=== PATIENT | female | born 1940 | race Two or more races ===

== ENCOUNTER 2018-08-17 06:30 | Day surgery (SDC) | payer OTHER ==
--- NOTE | 2018-08-16 18:46 | HP ---
- Patient Scheduled date of Surgery: 08/17/18 Scheduled Surgical Procedure: Phacoemulsification and cataract extraction with PCIOL Affected Eye: Right Chief Complaint (Indication for surgery): Decreased vision affecting ADLs - Ocular History Other Eye History: Other (dermatochalasis, L pugh's palsy) Eye Medications: vigamox, AT Previous Eye Surgery: none - Medical History Illnesses: Hypertension, Diabetes Current Medications: Ambulatory Orders Atenolol [Tenormin -] 50 mg PO DAILY 11/06/15 Glipizide [Glipizide Xl] 10 mg PO BID 11/06/15 metFORMIN HCL [Metformin HCl] 500 mg PO BID 11/06/15 Allergies/Adverse Reactions: Allergies Allergy/AdvReac Type Severity Reaction Status Date / Time No Known Allergies Allergy Verified 11/06/15 08:41 Ocular Examination - Best Corrected Visual Acuity Distance: Right eye: 20/40-2 Distance: Left eye: 20/30 - External/Slit Lamp Examination Abnormalities: decreased tbut, shallow peripherally - Intraocular Pressure Intraocular Pressure - Right eye: 15 Intraocular Pressure-Left eye: 15 - Lens Lens: 2+ NS 1+ cortical change - Vitreous/Retina Vitreous/Retina: c:d 0.4 m/v/p wnl - Special Examination M - Right eye: +2.75 M - Left eye: +2.75 -0.50 x 045 K - Right eye: 44.75/45.25 x 165 K - Left eye: 44.75/46 x 102 AL - Right eye: 23.19 AL - Left eye: 23.08 IOL bag: +20.5 AUOOTO IOL sulcus: +19.5 [id number] IOL AC: +16.5 [id number] - Impression Impression: Cataract Right Eye - Plan Plan: Phacoemulsification and cataract extraction - IOL Right eye Post-hospital care will be provided in office on: 08/18/18
[2018-08-17] MEDS ORDERED: TROPICAMIDE 1% OPHTH SOLN 15 ML BOTTLE OP SCH (06:45)
[2018-08-17 06:50] VITALS: BMI 32.2
[2018-08-17] MEDS ORDERED: CHONDROITIN SU A/HYALUR SOD 1 KIT ONE (07:13)
[2018-08-17] MEDS ORDERED: LIDOCAINE HCL/PF 1% SDV 5ML VIAL ONE (07:17)
[2018-08-17] MEDS ORDERED: POVIDONE-IODINE 5% OPHTHALMIC PREP 30 ML SOLUTION ONE (07:17)
[2018-08-17] MEDS ORDERED: TETRACAINE 0.5% OPHTH SOLN 2 ML BOTTLE ONE (07:17)
[2018-08-17] MEDS ORDERED: TOBRAMYCIN/DEXAMETHASONE OPHTH. OINTMENT 1 TUBE ONE (07:17)
--- NOTE | 2018-08-17 07:24 | HP ---
History & Physical Update - History History: No Change - Physical Physical: No Change - Assessment Assessment: No Change - Plan Plan: No Change (H and p reivewed by Dr. Lawler from 08/04/18 no change)
[2018-08-17] MEDS: KETOROLAC TROMETHAMINE 0.5% EYE DROP 1 DROP DROPS OP SCH ×3 (07:30→07:50)
[2018-08-17] MEDS: TROPICAMIDE 1% OPHTH SOLN 15 ML BOTTLE ONE ×3 (07:30→07:50)
[2018-08-17] MEDS: CIPROFLOXACIN HCL 0.3% OPHTH 2.5ML BOTTLE OP SCH ×3 (07:30→07:50)
[2018-08-17] MEDS: PHENYLEPHRINE 2.5% OPHTH SOLN 15 ML BOTTLE OP SCH ×3 (07:30→07:50)
[2018-08-17] MEDS ORDERED: ACETAMINOPHEN 325 MG TABLET (FP) PO PRN (07:30)
[2018-08-17] MEDS ORDERED: MIDAZOLAM HCL 2 MG/2 ML SINGLE DOSE VIAL ONE (08:52)
[2018-08-17] MEDS ORDERED: TETRACAINE 0.5% OPHTH SOLN 2 ML BOTTLE OD ONE (08:55)
[2018-08-17] MEDS ORDERED: POVIDONE-IODINE 5% OPHTHALMIC PREP 30 ML SOLUTION OD ONE (08:56)
[2018-08-17] MEDS ORDERED: CHONDROITIN SU A/HYALUR SOD 1 KIT IO ONE (09:04)
[2018-08-17] MEDS ORDERED: LIDOCAINE HCL 1% PRESERVATIVE FREE - 30ML VIAL IO ONE (09:04)
[2018-08-17] MEDS ORDERED: BSS (NA/CA/MG/K) BALANCED SALT SOLUTION OPHTH SOLN 15 ML BOTTLE OD ONE (09:04)
[2018-08-17] MEDS ORDERED: EPINEPHrine/PF 1 MG/1 ML (1:1,000) AMPULE ONE (09:10)
[2018-08-17] MEDS ORDERED: EPINEPHrine/PF 1 MG/1 ML (1:1,000) AMPULE SQ ONE (09:11)
[2018-08-17] MEDS ORDERED: TOBRAMYCIN/DEXAMETHASONE OPHTH. OINTMENT 1 TUBE TP ONE (09:23)
--- NOTE | 2018-08-17 09:27 | OP ---
Ophthalmology Operative Note Pre-Operative Diagnosis: Cataract Affected Eye: Right Operation: Phacoemulsification and cataract extraction with PCIOL Findings: NS Cataract right eye Post-Operative Diagnosis: Same as Pre-op Kitchen Assistant: Terry Anesthesiologist: Alli Ruiz Anesthesia: Topical Specimens Removed: none Estimated blood loss: < 1cc Drains & Tubes with Location: none Operative Report Dictated: Yes
[2018-08-17 10:40] VITALS: TEMP 97
[2018-08-17 10:53] VITALS: BP 143/76; PULSE 68
--- NOTE | 2018-08-17 13:47 | OP ---
DATE OF OPERATION: DATE OF DICTATION: 08/17/2018 PREOPERATIVE DIAGNOSIS: Nuclear cataract, right eye. POSTOPERATIVE DIAGNOSIS: Nuclear cataract, right eye. PROCEDURE: Phacoemulsification and cataract extraction with insertion of posterior chamber intraocular lens, right eye. SURGEON: Chelita oHlt MD [employer] MECHANIC: None. ANESTHESIA: Topical. ANESTHESIOLOGIST: Dr. Alli Ruiz OPERATIVE PROCEDURE: The patient received tetracaine eye drops and was gently sedated and prepped and draped in the usual sterile fashion so as to expose only the right eye. Ophthalmic Betadine was instilled into the inferior fornix, and the lashes were taped out of the surgical field. An eyelid speculum was placed into the right eye. A paracentesis was made in superior temporal clear cornea at the limbus. Then 0.5 mL of nonpreserved lidocaine 1% was injected into the anterior chamber. Viscoelastic material was instilled into the anterior chamber via the paracentesis. A 2.4-mm keratome was then used to create the main incision in temporal clear cornea at the limbus. A continuous curvilinear capsulorrhexis was performed using a cystotome and Utrata forceps. Hyrodissection of the lens cortex was performed using BSS on a cannula until the nucleus was noted to be freely rotating. The phacoemulsification tip was inserted via the main wound and used to sculpt 2 perpendicular grooves into the lens nucleus. The nucleus was cracked into 4 quadrants. Each quadrant was lifted out of the capsule into the iris plane and individually phacoemulsified. The remaining cortical material was then aspirated using the irrigation and aspiration port. The capsular bag was inflated using Provisc. A preloaded AcrySof lens model [id number], power +20.5 diopter was injected into the capsular bag and centered using a Sinskey hook. The residual viscoelastic material was removed from the anterior chamber using irrigation and aspiration. The wound edges were hydrated using BSS. The wound was tested for leakage. It was found to be watertight. Tobradex ointment was placed in the eye, and the speculum was removed from the eye, and the eyelid was closed. Sterile dressing and shield were placed over the eye, and the patient was transferred to the recovery room in stable condition and told to follow up in 1 day. CHELITA HOLT M.D. [id number]
== END 2018-08-17 10:53 | disposition home or self-care (01) ==
LOC: JASU-SURG 06:30
PROVIDERS: ATTEND Ophthalmology
PROC: 08RJ3JZ Replacement of Right Lens with Synthetic Substitute, Percutaneous Approach (ICD-10-PCS; principal; 2018-08-17 08:30)
DX: H25.11 Age-related nuclear cataract, right eye (principal)
CPT/HCPCS: 82962

== ENCOUNTER 2019-09-05 11:12 | Inpatient (IN) | payer OTHER ==
[2019-09-05 11:20] VITALS: BMI 39.0
[2019-09-05 12:31] LABS: VENOUS BASE EXCESS -2.1 mmol/L (-2-2); VENOUS PC02 32.2 mmHg (38-52); VENOUS PH 7.43 (7.31-7.41)
[2019-09-05 12:32] LABS: VENOUS PO2 < 49 mmHg (28-48)
[2019-09-05 12:42] LABS: INR 1.52 (0.83-1.09)
[2019-09-05 12:45] LABS: ACTIVATED PTT 41.3 SECONDS (25.2-36.5)
[2019-09-05 13:17] LABS: BASO % 0.1 % (0-2.0); HEMATOCRIT 44.7 % (32.4-45.2); HEMOGLOBIN 14.9 GM/dL (10.7-15.3); LYMPH % 10.5 % (8-40); MCH 31.8 pg (25.7-33.7); MCHC 33.3 g/dl (32.0-36.0); MEAN CELL VOLUME 95.6 fl (80-96); MEAN PLT VOLUME 7.5 fl (7.5-11.1); MONO % 7.3 % (3.8-10.2); NEUT % 82.1 % (42.8-82.8); PLATELET COUNT 217 K/MM3 (134-434); RBC 4.67 M/mm3 (3.60-5.2); RDW 13.8 % (11.6-15.6); WHITE BLOOD COUNT 14.4 K/mm3 (4.0-10.0)
[2019-09-05] MEDS ORDERED: RAPID SEQUENCE INTUBATION KIT NR ONE (13:28)
[2019-09-05] MEDS ORDERED: MIDAZOLAM HCL 5 MG/1 ML Single Dose Vial IVPUSH ONE (13:55)
[2019-09-05 13:56] LABS: ALBUMIN 2.8 g/dl (3.4-5.0); BILIRUBIN,DIRECT 0.9 mg/dL (0.0-0.2); BILIRUBIN,TOTAL 2.2 mg/dL (0.2-1); BLOOD UREA NITROGEN 27.3 mg/dL (7-18); CALCIUM 8.1 mg/dL (8.5-10.1); POTASSIUM 3.9 mmol/L (3.5-5.1); TOT PROT 7.2 g/dl (6.4-8.2)
[2019-09-05] MEDS ORDERED: PROPOFOL 1,000,000 MCG/100 ML VIAL ONE ×2 (14:00→20:37)
[2019-09-05] MEDS ORDERED: PIPERACILLIN/TAZOB 4.5 GM 4.5 GM/100 ML BAG IVPB ONE ×2 (14:03→15:12)
[2019-09-05] MEDS ORDERED: AZITHROMYCIN IVPB 500 MG in DEXTROSE 5%-WATER - 250 ML IVPB ONE (14:03)
[2019-09-05] MEDS ORDERED: VANCOMYCIN 1 GM in D5W (PRE-DOCKED) 1,000 MG/250 ML IVPB ONE (14:03)
[2019-09-05] MEDS ORDERED: SODIUM CHLORIDE 1,000 ML IV STA (14:03)
[2019-09-05] MEDS: PROPOFOL 1,000,000 MCG/100 ML VIAL IVPB SCH (14:04)
[2019-09-05] MEDS ORDERED: MIDAZOLAM HCL 2 MG/2 ML SINGLE DOSE VIAL ONE (14:06)
[2019-09-05] MEDS ORDERED: ACETAMINOPHEN INJECTION 100 ML IVPB ONE (14:24)
[2019-09-05] MEDS ORDERED: ACETAMINOPHEN 1000 MG/100 ML VIAL (NON FORMULARY) IVPB ONE (14:24)
[2019-09-05 14:58] LABS: EPI CELLS >36 /uL (0-25.1); HYALINE CASTS 15 /uL (0-3.1); PH,URINE 5.5 (5.0-8.0); URINE APPEARANCE CLOUDY; URINE BACTERIA 4 /uL (0-1359); URINE BILIRUBIN 2+ (NEGATIVE); URINE COLOR DK YELLOW; URINE GLUCOSE (UA) TRACE (NEGATIVE); URINE KETONE TRACE (NEGATIVE); URINE LEUK ESTERASE NEGATIVE (NEGATIVE); URINE NITRITE NEGATIVE (NEGATIVE); URINE PROTEIN 4+ (NEGATIVE); URINE WBC 25 /uL (0-25.8)
[2019-09-05 15:11] LABS: ARTERIAL BLD GAS O2 SATURATION 93.5 % (95-98); ARTERIAL BLOOD GAS BASE EXCESS -7.5 mmol/L (-2-2); ARTERIAL BLOOD GAS PCO2 56.3 mmHg (35-45); ARTERIAL BLOOD GAS PO2 92.5 mmHg (80-100)
[2019-09-05] MEDS ORDERED: AZITHROMYCIN IVPB ONE (15:12)
[2019-09-05] MEDS ORDERED: VANCOMYCIN 1 GRAM (PRE-DOCKED) 1,000 MG/250 ML BAG IVPB ONE (15:12)
[2019-09-05 15:14] LABS: ALLENS TEST POSITIVE
[2019-09-05 15:15] LABS: ARTERIAL BLOOD GAS pH 7.19 (7.35-7.45)
[2019-09-05 15:32] LABS: URINE RBC 21.8 /uL (0-23.9)
[2019-09-05] MEDS ORDERED: NOREPINEPHRINE BITARTRATE 4 MG/4 ML ML IV ONE ×2 (16:34→16:48)
[2019-09-05] MEDS: NOREPINEPHRINE BITARTRATE 8,000 MCG in DEXTROSE 5%-WATER - 492 ML IV SCH (16:52)
[2019-09-05] MEDS ORDERED: ENOXAPARIN NA (PORCINE) 80 MG/0.8 ML DISP.SYRIN SQ ONE ×2 (17:02)
[2019-09-05] MEDS: ZINC SULFATE 220 MG CAPSULE (FP) PO SCH (18:14)
[2019-09-05] MEDS ORDERED: MIDAZOLAM IN 0.9 % SOD.CHLORID 100 MG/100 ML PLAST..BAG IVPB SCH (18:15)
[2019-09-05 18:44] LABS: ARTERIAL BLD GAS O2 SATURATION 86.4 % (95-98); ARTERIAL BLOOD GAS BASE EXCESS -5.7 mmol/L (-2-2); ARTERIAL BLOOD GAS PCO2 67.8 mmHg (35-45); ARTERIAL BLOOD GAS PO2 69.4 mmHg (80-100)
[2019-09-05 18:45] LABS: ALLENS TEST POSITIVE
[2019-09-05 18:46] LABS: ARTERIAL BLOOD GAS pH 7.17 (7.35-7.45)
[2019-09-05 19:56] LABS: HIV INTERPRETATION NEGATIVE (NEGATIVE)
[2019-09-05 20:24] LABS: ARTERIAL BLD GAS O2 SATURATION 98.4 % (95-98); ARTERIAL BLOOD GAS BASE EXCESS -6.4 mmol/L (-2-2); ARTERIAL BLOOD GAS PCO2 68.7 mmHg (35-45); ARTERIAL BLOOD GAS PO2 203 mmHg (80-100)
[2019-09-05 20:28] LABS: ARTERIAL BLOOD GAS pH 7.17 (7.35-7.45)
[2019-09-05] MEDS: HYDROXYCHLOROQUINE 200 MG/8 ML ORAL SUSPENSION PO SCH (22:00)
[2019-09-05] MEDS ORDERED: CHLORHEXIDINE GLUCONATE 4% CLEANSER FOR DECOLONIZATION TP SCH (22:00)
[2019-09-05] MEDS ORDERED: HEPARIN NA (PORCINE) 5,000 UNITS/ML 1ML VIAL SQ SCH (22:00)
[2019-09-05] MEDS ORDERED: MUPIROCIN 2% TOPICAL OINTMENT FOR DECOLONIZATION NS SCH (22:00)
[2019-09-05] MEDS ORDERED: HYDROXYCHLOROQUINE 200 MG/8 ML ORAL SUSPENSION ONE (23:06)
[2019-09-05 23:11] LABS: ARTERIAL BLOOD GAS PCO2 35.4 mmHg (35-45); ARTERIAL BLOOD GAS pH 7.31 (7.35-7.45)
[2019-09-05 23:12] LABS: ARTERIAL BLD GAS O2 SATURATION 99.2 % (95-98); ARTERIAL BLOOD GAS BASE EXCESS -7.7 mmol/L (-2-2); ARTERIAL BLOOD GAS PO2 185.2 mmHg (80-100)
[2019-09-06] MEDS ORDERED: PROPOFOL 1,000,000 MCG/100 ML VIAL ONE ×5 (01:16→22:34)
[2019-09-06] MEDS ORDERED: ENOXAPARIN NA (PORCINE) 100 MG/1 ML DISP.SYRIN SQ SCH (05:00)
[2019-09-06] MEDS ORDERED: ENOXAPARIN NA (PORCINE) 100 MG/1 ML DISP.SYRIN SQ ONE (05:14)
[2019-09-06] MEDS ORDERED: HYDROXYCHLOROQUINE 200 MG/8 ML ORAL SUSPENSION ONE ×2 (07:42→22:55)
[2019-09-06] MEDS ORDERED: PANTOPRAZOLE SODIUM 40 MG VIAL ONE (07:43)
[2019-09-06] MEDS ORDERED: ZINC SULFATE 220 MG CAPSULE (FP) ONE (07:43)
[2019-09-06 07:52] LABS: BASO % 0.3 % (0-2.0); EOS % 0.5 % (0-4.5); HEMATOCRIT 41.4 % (32.4-45.2); HEMOGLOBIN 13.7 GM/dL (10.7-15.3); LYMPH % 15.9 % (8-40); MCH 32.3 pg (25.7-33.7); MCHC 33.1 g/dl (32.0-36.0); MEAN CELL VOLUME 97.5 fl (80-96); MEAN PLT VOLUME 8.1 fl (7.5-11.1); MONO % 5.3 % (3.8-10.2); PLATELET COUNT 195 K/MM3 (134-434); RBC 4.25 M/mm3 (3.60-5.2); RDW 14.2 % (11.6-15.6); WHITE BLOOD COUNT 24.4 K/mm3 (4.0-10.0)
[2019-09-06] MEDS ORDERED: NOREPINEPHRINE BITARTRATE 4 MG/4 ML ML IV ONE (07:58)
[2019-09-06 08:10] LABS: ALBUMIN 2.5 g/dl (3.4-5.0); CALCIUM 7.7 mg/dL (8.5-10.1); CREATININE 2.1 mg/dL (0.55-1.3); MAGNESIUM 2.2 mg/dL (1.8-2.4); POTASSIUM 4.3 mmol/L (3.5-5.1); TOT PROT 6.6 g/dl (6.4-8.2)
[2019-09-06] MEDS: ZINC SULFATE 220 MG CAPSULE (FP) PO SCH (10:00)
[2019-09-06] MEDS: HYDROXYCHLOROQUINE 200 MG/8 ML ORAL SUSPENSION PO SCH ×2 (10:00→23:00)
[2019-09-06] MEDS: PANTOPRAZOLE SODIUM 40 MG VIAL IVPUSH SCH (10:00)
[2019-09-06] MEDS: CEFTRIAXONE 1 GM in DEXTROSE 5%-WATER - 50 ML IVPB SCH (10:59)
[2019-09-06 11:12] LABS: ANISOCYTOSIS 1+; MACROCYTOSIS 0; PLATELET ESTIMATE NORMAL
[2019-09-06] MEDS ORDERED: ACETAMINOPHEN 1000 MG/100 ML VIAL (NON FORMULARY) IVPB PRN (13:08)
[2019-09-06] MEDS ORDERED: ACETAMINOPHEN INJECTION 100 ML IVPB ONE (14:03)
[2019-09-06] MEDS: PROPOFOL 1,000,000 MCG/100 ML VIAL IVPB SCH (14:45)
[2019-09-06] MEDS ORDERED: HEPARIN NA (PORCINE) 5,000 UNITS/ML 1ML VIAL ONE (22:56)
[2019-09-06] MEDS: HEPARIN NA (PORCINE) 5,000 UNITS/ML 1ML VIAL SQ SCH (23:00)
[2019-09-07] MEDS ORDERED: PROPOFOL 1,000,000 MCG/100 ML VIAL ONE ×3 (02:56→13:40)
[2019-09-07 07:05] LABS: BASO % 0.3 % (0-2.0); EOS % 0.1 % (0-4.5); HEMATOCRIT 40.7 % (32.4-45.2); HEMOGLOBIN 13.4 GM/dL (10.7-15.3); LYMPH % 8.3 % (8-40); MCH 32.3 pg (25.7-33.7); MCHC 32.9 g/dl (32.0-36.0); MEAN PLT VOLUME 8.6 fl (7.5-11.1); MONO % 7.4 % (3.8-10.2); NEUT % 83.9 % (42.8-82.8); PLATELET COUNT 247 K/MM3 (134-434); RBC 4.15 M/mm3 (3.60-5.2); RDW 13.7 % (11.6-15.6); WHITE BLOOD COUNT 27.2 K/mm3 (4.0-10.0)
[2019-09-07 07:38] LABS: ALBUMIN 2.2 g/dl (3.4-5.0); BILIRUBIN,TOTAL 1.4 mg/dL (0.2-1); BLOOD UREA NITROGEN 49.2 mg/dL (7-18); CALCIUM 7.8 mg/dL (8.5-10.1); MAGNESIUM 2.2 mg/dL (1.8-2.4); PHOSPHOROUS 7.9 mg/dL (2.5-4.9); POTASSIUM 5.3 mmol/L (3.5-5.1); TOT PROT 6.2 g/dl (6.4-8.2)
[2019-09-07] MEDS: ZINC SULFATE 220 MG CAPSULE (FP) PO SCH (09:45)
[2019-09-07 09:46] LABS: ANISOCYTOSIS 1+; MACROCYTOSIS 1+; PLATELET ESTIMATE NORMAL
[2019-09-07] MEDS: HYDROXYCHLOROQUINE 200 MG/8 ML ORAL SUSPENSION PO SCH (10:00)
[2019-09-07] MEDS ORDERED: CEFTRIAXONE 1 GM/50 ML BAG ONE (10:09)
[2019-09-07] MEDS ORDERED: HYDROXYCHLOROQUINE 200 MG/8 ML ORAL SUSPENSION ONE (10:09)
[2019-09-07] MEDS: CEFTRIAXONE 1 GM in DEXTROSE 5%-WATER - 50 ML IVPB SCH (10:10)
[2019-09-07] MEDS ORDERED: PANTOPRAZOLE SODIUM 40 MG VIAL ONE (10:10)
[2019-09-07] MEDS: PANTOPRAZOLE SODIUM 40 MG VIAL IVPUSH SCH (10:15)
[2019-09-07] MEDS ORDERED: HEPARIN NA (PORCINE) 5,000 UNITS/ML 1ML VIAL ONE ×3 (11:11→22:36)
[2019-09-07] MEDS: HEPARIN NA (PORCINE) 5,000 UNITS/ML 1ML VIAL SQ SCH ×3 (11:14→22:46)
[2019-09-07] MEDS: NOREPINEPHRINE BITARTRATE 8,000 MCG in DEXTROSE 5%-WATER - 492 ML IV SCH ×2 (12:50→17:08)
[2019-09-07] MEDS: PROPOFOL 1,000,000 MCG/100 ML VIAL IVPB SCH (14:26)
[2019-09-07] MEDS ORDERED: ACETAMINOPHEN 325 MG TABLET (FP) PO PRN (14:34)
[2019-09-07] MEDS ORDERED: HYDROCORTISONE SOD SUCCINATE 2 ML ONE ×2 (16:10→22:37)
[2019-09-07] MEDS: HYDROCORTISONE SOD SUCCINATE 100 MG/2 ML VIAL IVPB SCH (16:13)
[2019-09-07] MEDS: VASOPRESSIN 40 UNITS in SODIUM CHLORIDE 98 ML IVPB SCH (17:09)
[2019-09-07] MEDS: FLUDROCORTISONE ACETATE 0.1 MG TABLET (FP) PO SCH (17:09)
[2019-09-07] MEDS ORDERED: SODIUM CHLORIDE 1,000 ML IV SCH (21:30)
[2019-09-07] MEDS: SODIUM ZIRCONIUM CYCLOSILICATE (LOKELMA) 5 GM PACKET PO SCH (22:46)
[2019-09-07] MEDS: INSULIN SLIDING SCALE (NOVOLOG) 1 VIAL SQ SCH (22:56)
[2019-09-08] MEDS: HYDROCORTISONE SOD SUCCINATE 100 MG/2 ML VIAL IVPB SCH ×4 (00:05→23:20)
[2019-09-08] MEDS ORDERED: PROPOFOL 1,000,000 MCG/100 ML VIAL ONE ×2 (02:05→09:25)
[2019-09-08] MEDS ORDERED: HYDROXYCHLOROQUINE 200 MG/8 ML ORAL SUSPENSION ONE ×3 (02:12→22:20)
[2019-09-08] MEDS: HYDROXYCHLOROQUINE 200 MG/8 ML ORAL SUSPENSION PO SCH ×3 (02:13→23:20)
[2019-09-08] MEDS ORDERED: HEPARIN NA (PORCINE) 5,000 UNITS/ML 1ML VIAL ONE ×2 (06:52→22:20)
[2019-09-08] MEDS ORDERED: HYDROCORTISONE SOD SUCCINATE 2 ML ONE ×2 (06:53→22:21)
[2019-09-08] MEDS: HEPARIN NA (PORCINE) 5,000 UNITS/ML 1ML VIAL SQ SCH ×3 (07:02→23:08)
[2019-09-08] MEDS ORDERED: VASOPRESSIN 20 UNITS/ML VIAL IV ONE ×2 (08:17→16:22)
[2019-09-08 09:21] LABS: BASO % 1.4 % (0-2.0); HEMATOCRIT 37.2 % (32.4-45.2); HEMOGLOBIN 12.2 GM/dL (10.7-15.3); LYMPH % 2.8 % (8-40); MCH 32.1 pg (25.7-33.7); MCHC 32.7 g/dl (32.0-36.0); MEAN CELL VOLUME 98.1 fl (80-96); MEAN PLT VOLUME 8.4 fl (7.5-11.1); MONO % 7.9 % (3.8-10.2); NEUT % 87.9 % (42.8-82.8); PLATELET COUNT 254 K/MM3 (134-434); RDW 14.2 % (11.6-15.6); WHITE BLOOD COUNT 23.4 K/mm3 (4.0-10.0)
[2019-09-08 09:59] LABS: ARTERIAL BLD GAS O2 SATURATION 97.5 % (95-98); ARTERIAL BLOOD GAS PCO2 62.7 mmHg (35-45); ARTERIAL BLOOD GAS PO2 123 mmHg (80-100)
[2019-09-08 10:00] LABS: ALLENS TEST POSITIVE
[2019-09-08] MEDS ORDERED: SODIUM BICARBONATE 8.4% 50 MEQ/50 ML DISP.SYRIN IVPUSH ONE (10:04)
[2019-09-08] MEDS ORDERED: SODIUM BICARBONATE 8.4% 50 MEQ/50 ML VIAL ONE (10:06)
[2019-09-08] MEDS: CEFTRIAXONE 1 GM in DEXTROSE 5%-WATER - 50 ML IVPB SCH (10:38)
[2019-09-08] MEDS ORDERED: CEFTRIAXONE 1 GM/50 ML BAG ONE (10:39)
[2019-09-08 10:48] LABS: ALK PHOS 121 U/L (45-117); BILIRUBIN,TOTAL 1.8 mg/dL (0.2-1); BLOOD UREA NITROGEN 65.6 mg/dL (7-18); CALCIUM 7.1 mg/dL (8.5-10.1); CHLORIDE 100 mmol/L (98-107); CO2 16 mmol/L (21-32); CREATININE 5.9 mg/dL (0.55-1.3); GLUCOSE,RANDOM 200 mg/dL (74-106); MAGNESIUM 2.7 mg/dL (1.8-2.4); SGOT/AST 512 U/L (15-37); SGPT/ALT 126 U/L (13-61); SODIUM 131 mmol/L (136-145); TOT PROT 5.8 g/dl (6.4-8.2)
[2019-09-08 10:50] LABS: PHOSPHOROUS 9.8 mg/dL (2.5-4.9)
[2019-09-08] MEDS ORDERED: DEXTROSE 50%-WATER - 25 GM/50 ML VIAL IVPUSH PRN (10:50)
[2019-09-08] MEDS ORDERED: INSULIN REGULAR HUMAN 100 UNITS/ML *VIAL IVPUSH ONE (10:50)
[2019-09-08 10:51] LABS: POTASSIUM 6.5 mmol/L (3.5-5.1)
[2019-09-08] MEDS ORDERED: SODIUM ZIRCONIUM CYCLOSILICATE (LOKELMA) 5 GM PACKET PO ONE (10:52)
[2019-09-08] MEDS ORDERED: SODIUM POLYSTYRENE SULFONATE 15 GM/60 ML BOTTLE GT ONE (12:54)
[2019-09-08] MEDS ORDERED: SODIUM CHLORIDE 1,000 ML IV STA (12:54)
[2019-09-08] MEDS ORDERED: ZINC SULFATE 220 MG CAPSULE (FP) ONE ×2 (13:40→13:56)
[2019-09-08] MEDS ORDERED: PANTOPRAZOLE SODIUM 40 MG/100 ML BAG IVPB ONE (13:40)
[2019-09-08] MEDS: FLUDROCORTISONE ACETATE 0.1 MG TABLET (FP) PO SCH (14:13)
[2019-09-08] MEDS: SODIUM ZIRCONIUM CYCLOSILICATE (LOKELMA) 5 GM PACKET PO SCH (14:13)
[2019-09-08] MEDS: ZINC SULFATE 220 MG CAPSULE (FP) PO SCH (14:13)
[2019-09-08] MEDS: PANTOPRAZOLE SODIUM 40 MG VIAL IVPUSH SCH (14:14)
[2019-09-08] MEDS: SEVELAMER CARBONATE 0.8 GM POWDER PACKET GT SCH ×2 (14:16→18:52)
[2019-09-08] MEDS: PROPOFOL 1,000,000 MCG/100 ML VIAL IVPB SCH (14:16)
[2019-09-08] MEDS: SODIUM BICARBONATE 8.4% - 150 MEQ in DEXTROSE 5%-WATER - 1,000 ML IV SCH (14:17)
[2019-09-08] MEDS: VASOPRESSIN 40 UNITS in SODIUM CHLORIDE 98 ML IVPB SCH (14:18)
[2019-09-08] MEDS ORDERED: DEXTROSE 50%-WATER - 25 GM/50 ML VIAL ONE (14:26)
[2019-09-08 15:04] LABS: ANISOCYTOSIS 0; MACROCYTOSIS 0; PLATELET ESTIMATE NORMAL
[2019-09-08] MEDS ORDERED: VITAMINS A AND D TOPICAL OINTMENT 60 GM TUBE TP PRN (15:19)
[2019-09-08] MEDS ORDERED: NOREPINEPHRINE BITARTRATE 4 MG/4 ML ML IV ONE ×2 (15:49→17:11)
[2019-09-08] MEDS ORDERED: MIDAZOLAM 100MG/100ML DRIP - DO NOT USE FOR BILLING ONE (16:11)
[2019-09-08] MEDS: NOREPINEPHRINE BITARTRATE 8,000 MCG in DEXTROSE 5%-WATER - 492 ML IV SCH (16:45)
[2019-09-08] MEDS ORDERED: AMIODARONE HCL 150 MG/3 ML VIAL IVPUSH ONE (16:57)
[2019-09-08] MEDS ORDERED: AMIODARONE HCL 150 MG/3 ML VIAL ONE (17:01)
[2019-09-08] MEDS ORDERED: SODIUM CHLORIDE 0.9% 1000 ML INFUS.BAG IV ONE (17:11)
[2019-09-08] MEDS ORDERED: ACETAMINOPHEN 1000 MG/100 ML VIAL (NON FORMULARY) IVPB ONE (17:33)
[2019-09-08] MEDS ORDERED: ACETAMINOPHEN INJECTION 100 ML IVPB ONE (17:35)
[2019-09-08] MEDS: INSULIN SLIDING SCALE (NOVOLOG) 1 VIAL SQ SCH (23:08)
[2019-09-09] MEDS ORDERED: AMIODARONE HCL 150 MG/3 ML VIAL IVPUSH ONE (00:13)
[2019-09-09] MEDS ORDERED: AMIODARONE HCL 150 MG/3 ML VIAL ONE (00:35)
[2019-09-09] MEDS ORDERED: NOREPINEPHRINE D5W PREMIX 16,000 MCG/500 ML BAG IVPB SCH (00:46)
[2019-09-09] MEDS: SODIUM BICARBONATE 8.4% - 150 MEQ in DEXTROSE 5%-WATER - 1,000 ML IV SCH (01:22)
[2019-09-09] MEDS ORDERED: PHENYLEPHRINE HCL 10 MG/1 ML SINGLE DOSE VIAL IVPB ONE ×3 (01:30→02:35)
[2019-09-09] MEDS ORDERED: CALCIUM CHLORIDE 10% 1 GM/10 ML *VIAL IVPUSH ONE (01:41)
[2019-09-09] MEDS ORDERED: INSULIN REGULAR HUMAN 100 UNITS/ML *VIAL IVPUSH ONE (01:42)
[2019-09-09] MEDS ORDERED: DEXTROSE 50%-WATER - 25 GM/50 ML VIAL IVPUSH ONE (01:42)
[2019-09-09] MEDS ORDERED: PHENYLEPHRINE NS PREMIX 10,000 MCG/100 ML BAG CVP SCH (01:45)
[2019-09-09] MEDS ORDERED: PHENYLEPHRINE HCL 10 MG/1 ML SINGLE DOSE VIAL ONE (01:52)
[2019-09-09] MEDS ORDERED: CALCIUM CHLORIDE 1 GM/10 ML *DISP.SYRIN ONE (01:59)
[2019-09-09] MEDS ORDERED: DEXTROSE 50%-WATER 25 GM/50 ML DISP.SYRIN ONE (01:59)
[2019-09-09 02:27] LABS: ARTERIAL BLD GAS O2 SATURATION 83.6 % (95-98); ARTERIAL BLOOD GAS BASE EXCESS -20.2 mmol/L (-2-2); ARTERIAL BLOOD GAS PO2 62.6 mmHg (80-100)
[2019-09-09 02:30] LABS: ALLENS TEST POSITIVE
[2019-09-09] MEDS ORDERED: PHENYLEPHRINE NS PREMIX 50,000 MCG/500 ML BAG CVP SCH (02:30)
[2019-09-09 02:32] LABS: ARTERIAL BLOOD GAS pH 6.92 (7.35-7.45)
[2019-09-09] MEDS ORDERED: DOPAMINE 400 MG/D5W - 400,000 MCG/250 ML INFUS.BAG IVPB ONE (03:14)
[2019-09-09] MEDS ORDERED: DOPAMINE 400 MG/D5W - 400,000 MCG/250 ML INFUS.BAG IVPB SCH (03:15)
[2019-09-09 03:35] LABS: ALBUMIN 1.4 g/dl (3.4-5.0); ALK PHOS 205 U/L (45-117); ANION GAP 22 MMOL/L (8-16); BILIRUBIN,TOTAL 1.8 mg/dL (0.2-1); BLOOD UREA NITROGEN 66.9 mg/dL (7-18); CALCIUM 9.5 mg/dL (8.5-10.1); CHLORIDE 94 mmol/L (98-107); CO2 12 mmol/L (21-32); CREATININE 7.1 mg/dL (0.55-1.3); POTASSIUM 5.7 mmol/L (3.5-5.1); SGPT/ALT 1347 U/L (13-61); SODIUM 128 mmol/L (136-145); TOT PROT 4.2 g/dl (6.4-8.2)
[2019-09-09 03:39] LABS: SGOT/AST > 1000 U/L (15-37)
[2019-09-09 03:40] LABS: GLUCOSE,RANDOM 459 mg/dL (74-106)
[2019-09-09 03:41] LABS: PHOSPHOROUS > 9.0 mg/dL (2.5-4.9)
[2019-09-09] MEDS ORDERED: MIDAZOLAM 100 MG in SODIUM CHLORIDE 100 ML IVPB SCH (03:45)
[2019-09-09] MEDS: SEVELAMER CARBONATE 0.8 GM POWDER PACKET GT SCH (03:59)
[2019-09-09 05:15] VITALS: PULSE 110; TEMP 100.9
[2019-09-09] MEDS ORDERED: ACETAMINOPHEN 325 MG TABLET (FP) PO PRN (05:26)
[2019-09-09 06:24] VITALS: BP 135/38
[2019-09-09] MEDS: HYDROCORTISONE SOD SUCCINATE 100 MG/2 ML VIAL IVPB SCH (06:49)
[2019-09-09] MEDS: HEPARIN NA (PORCINE) 5,000 UNITS/ML 1ML VIAL SQ SCH (06:49)
[2019-09-09 07:16] LABS: BASO % 0.4 % (0-2.0); EOS % 0.1 % (0-4.5); HEMATOCRIT 34.2 % (32.4-45.2); HEMOGLOBIN 10.8 GM/dL (10.7-15.3); LYMPH % 7.2 % (8-40); MCH 31.8 pg (25.7-33.7); MCHC 31.5 g/dl (32.0-36.0); MEAN CELL VOLUME 100.9 fl (80-96); MEAN PLT VOLUME 8.7 fl (7.5-11.1); MONO % 16.6 % (3.8-10.2); NEUT % 75.7 % (42.8-82.8); PLATELET COUNT 171 K/MM3 (134-434); RBC 3.39 M/mm3 (3.60-5.2); RDW 14.9 % (11.6-15.6)
[2019-09-09 07:57] LABS: ALBUMIN 1.6 g/dl (3.4-5.0); BILIRUBIN,TOTAL 2.7 mg/dL (0.2-1); CREATININE 7.3 mg/dL (0.55-1.3); MAGNESIUM 2.5 mg/dL (1.8-2.4); POTASSIUM 5.5 mmol/L (3.5-5.1); TOT PROT 4.9 g/dl (6.4-8.2)
[2019-09-09 08:44] LABS: ARTERIAL BLD GAS O2 SATURATION 80.4 % (95-98); ARTERIAL BLOOD GAS BASE EXCESS -15.9 mmol/L (-2-2); ARTERIAL BLOOD GAS PCO2 61.3 mmHg (35-45); ARTERIAL BLOOD GAS PO2 52.2 mmHg (80-100)
[2019-09-09 08:50] LABS: ARTERIAL BLOOD GAS pH 7.02 (7.35-7.45)
[2019-09-09] MEDS ORDERED: VASOPRESSIN 20 UNITS/ML VIAL IV ONE (09:01)
[2019-09-09 09:02] LABS: CALCIUM 6.8 mg/dL (8.5-10.1)
[2019-09-09 09:40] LABS: WHITE BLOOD COUNT 19.7 K/mm3 (4.0-10.0)
[2019-09-09 09:43] LABS: ANISOCYTOSIS 1+; HELMET CELLS 1+; MACROCYTOSIS 1+; OVALOCYTE 1+; PLATELET ESTIMATE NORMAL; TEAR DROP CELLS 1+
[2019-09-09 10:08] LABS: CORRECTED WBC 17.75 K/mm3
[2019-09-09] MEDS ORDERED: MIDAZOLAM IN 0.9 % SOD.CHLORID 1 MG/1 ML PLAST..BAG ONE (10:17)
[2019-09-09] MEDS ORDERED: MORPHINE SULFATE/0.9% NACL/PF 100 MG/100 ML BAG ONE (11:18)
[2019-09-09] MEDS ORDERED: MORPHINE SULFATE/0.9% NACL/PF 100 MG/100 ML BAG IVPB SCH (11:30)
== END 2019-09-09 11:30 | disposition expired | DRG 208 ==
LOC: JER 11:12 → SUPCPDRO 11:12 → JERBED 14:11
PROVIDERS: ADMIT Internal Medicine; ATTEND Internal Medicine
PROC: 5A1945Z Respiratory Ventilation, 24-96 Consecutive Hours (ICD-10-PCS; principal; 2019-09-05)
PROC: 0BH17EZ Insertion of Endotracheal Airway into Trachea, Via Natural or Artificial Opening (ICD-10-PCS; 2019-09-05)
DX: U07.1 COVID-19 (principal); J12.89 Other viral pneumonia; J96.01 Acute respiratory failure with hypoxia; A41.89 Other specified sepsis; R65.21 Severe sepsis with septic shock; N17.9 Acute kidney failure, unspecified; I10 Essential (primary) hypertension; E11.9 Type 2 diabetes mellitus without complications; I46.9 Cardiac arrest, cause unspecified; E87.5 Hyperkalemia; G51.0 Bell's palsy
CPT/HCPCS: 36415; 36600; 71045-TC-FY; 80053; 81003; 82248; 82550; 82553; 82803; 82962; 83605; 83615; 83735; 84100; 84484; 85025; 85379; 85610; 85730; 86850; 86900; 86901; 87040; 87070; 87086; 87186; 87205; 87389; 87899; 93005; 93010; 94002; 99291; 99292; J0131; J1644; U0002